=== PATIENT | male | born 1970 | race Caucasian/White ===

== ENCOUNTER 2018-11-12 08:41 | Inpatient (IN) | payer MEDICAID ==
[~2018-11-12] VITALS: Ht 170.2 cm; Wt 79.4 kg
[2018-11-12] MEDS ORDERED: MORPHINE SULFATE 4 MG/ML CPJ (NOT FOR IM USE) IV STA (09:00)
[2018-11-12] MEDS ORDERED: ONDANSETRON HCL 4MG/2ML INJ IV STA (09:00)
[2018-11-12] MEDS ORDERED: SODIUM CHLORIDE 0.9% 1,000 ML IV ONE ×2 (09:00→11:53)
[2018-11-12 09:15] LABS: BASOPHILS % 0.4 % (0.0-2.0); HEMOGLOBIN. 12.7 g/dL (14.0-18.0); LYMPHOCYTES % 7.9 % (20.0-50.0); MEAN CORPUSCULAR HEMOGLOBIN 32.8 pg (28.0-32.0); MEAN CORPUSCULAR VOLUME 95.7 fL (80.0-94.0); MEAN PLATELET VOLUME 7.1 fl (7.4-10.4); MONOCYTES % 3.8 % (2.0-8.0); NEUTROPHILS % 87.9 % (40.0-76.0); PLATELET 229 x1000/uL (130-400); RED BLOOD CELL COUNT 3.87 mill/uL (4.7-6.1); RED CELL DISTRIBUTION WIDTH 12.4 % (11.6-14.6)
[2018-11-12 09:24] LABS: PARTIAL THROMBOPLASTIN TIME 27.8 sec (23.4-31.0); PROTHROMBIN TIME 10.2 sec (9.6-11.0)
[2018-11-12 09:26] LABS: CHLORIDE 102 mEq/L (98-107)
[2018-11-12 10:51] LABS: CLARITY URINE CLOUDY (CLEAR); COLOR URINE DARK YELLOW (YELLOW); KETONES URINE TRACE (NEGATIVE); LEUKOCYTE ESTERASE URINE TRACE (NEGATIVE); NITRITE URINE NEGATIVE (NEGATIVE); OCCULT BLOOD URINE NEGATIVE (NEGATIVE); PROTEIN URINE TRACE (NEGATIVE); SPECIFIC GRAVITY URINE 1.019 (1.005-1.030)
[2018-11-12] MEDS ORDERED: SODIUM CHLORIDE 0.9% 1000ML BAG (SEPSIS BOLUS) IV ONE (13:30)
[2018-11-12] MEDS ORDERED: GUAIFENESIN 200MG/10ML SUGAR FREE UDC PO PRN (20:00)
[2018-11-12] MEDS ORDERED: IPRATROPIUM/ALBUTEROL 0.5-3(2.5)MG/3ML NEB HHN PRN (20:00)
[2018-11-12] MEDS ORDERED: NA PHOS,M-B/NA PHOS,DI-BA ENEMA 118ML PR PRN (20:00)
[2018-11-12] MEDS ORDERED: DOCUSATE SODIUM 100MG CAPSULE PO PRN (20:00)
[2018-11-12] MEDS ORDERED: ONDANSETRON HCL 4MG/2ML INJ IV PRN (20:00)
[2018-11-12] MEDS ORDERED: MAGNESIUM/ALUMINUM HYDROXIDE/SIMETHICONE 30ML UDC PO PRN (20:00)
[2018-11-12] MEDS ORDERED: ACETAMINOPHEN 650MG/20.3ML UDC GT PRN (20:00)
[2018-11-12] MEDS ORDERED: DIPHENHYDRAMINE 50MG/ML VIAL IV PRN (20:00)
[2018-11-12] MEDS ORDERED: CLONIDINE 0.1MG TABLET PO PRN (20:00)
[2018-11-12] MEDS ORDERED: ACETAMINOPHEN 650MG SUPP PR PRN (20:00)
[2018-11-12 22:00] VITALS: BP 102/55
[2018-11-12] MEDS: ACETAMINOPHEN 325MG TABLET PO PRN (22:16)
[2018-11-12] MEDS ORDERED: CEFTRIAXONE 1 G PREMIX 50 ML IV SCH (23:30)
[2018-11-12] MEDS: SODIUM CHLORIDE 0.9% 1,000 ML IV SCH (23:42)
[2018-11-12] MEDS: ENOXAPARIN 40MG/0.4ML SYR SUBCUT SCH (23:43)
[2018-11-13] VITALS (15 sets, daily range): BP systolic 91–124; BP diastolic 47–80
[2018-11-13] MEDS: CEFTRIAXONE 1 G PREMIX 50 ML IV SCH (01:29)
[2018-11-13] MEDS: METRONIDAZOLE 500 MG PREMIX 100 ML IV SCH ×3 (02:07→17:25)
[2018-11-13] MEDS: SODIUM CHLORIDE 0.9% INJ 3ML FLUSH IVF SCH ×3 (06:57→20:41)
[2018-11-13] MEDS: ACETAMINOPHEN 325MG TABLET PO PRN ×2 (06:58→12:51)
[2018-11-13 09:18] LABS: *AMPHETAMINES SCREEN URINE PRESUMTIVE POSITIVE (NEGATIVE); *BARBITURATES SCREEN URINE NEGATIVE (NEGATIVE); *BENZODIAZEPINES SCREEN URINE NEGATIVE (NEGATIVE); *COCAINE SCREEN URINE NEGATIVE (NEGATIVE); METHADONE URINE SCREEN NEGATIVE (NEGATIVE); OPIATES URINE SCREEN PRESUMTIVE POSITIVE (NEGATIVE)
[2018-11-13 09:19] LABS: CANNABINOID URINE SCREEN NEGATIVE (NEGATIVE); PHENCYCLIDINE URINE SCREEN NEGATIVE (NEGATIVE)
[2018-11-13] MEDS: SODIUM CHLORIDE 0.9% 1,000 ML IV SCH ×2 (09:45→20:41)
[2018-11-13 10:13] LABS: BASOPHILS % 0.5 % (0.0-2.0); EOSINOPHILS % 0.3 % (0.0-5.0); HEMATOCRIT. 32.9 % (42.0-52.0); HEMOGLOBIN. 11.3 g/dL (14.0-18.0); LYMPHOCYTES % 12.1 % (20.0-50.0); MEAN CORPUSCULAR HEMOGLOBIN 33.2 pg (28.0-32.0); MEAN CORPUSCULAR VOLUME 96.5 fL (80.0-94.0); MEAN PLATELET VOLUME 7.2 fl (7.4-10.4); MONOCYTES % 6.6 % (2.0-8.0); NEUTROPHILS % 80.5 % (40.0-76.0); PLATELET 184 x1000/uL (130-400); RED BLOOD CELL COUNT 3.41 mill/uL (4.7-6.1); RED CELL DISTRIBUTION WIDTH 12.3 % (11.6-14.6)
[2018-11-13 10:19] LABS: CHLORIDE 111 mEq/L (98-107)
[2018-11-13 10:26] LABS: LDL CHOLESTEROL 55 mg/dL (5-100)
[2018-11-13 10:27] LABS: HDL CHOLESTEROL 28 mg/dL (40-59)
[2018-11-13] MEDS ORDERED: POTASSIUM CHLORIDE 20MEQ TABLET SR PO ONE ×2 (13:00→17:00)
[2018-11-13] MEDS ORDERED: POTASSIUM CHLORIDE 20MEQ TABLET SR PO NR ×4 (13:15→21:00)
[2018-11-13 16:37] LABS: FOLIC ACID (FOLATE) SERUM 5.6 ng/mL (>5.38)
[2018-11-13] MEDS: POTASSIUM CHLORIDE 20MEQ TABLET SR PO SCH (17:24)
[2018-11-13 20:15] LABS: HEPATITIS B SURFACE ANTIGEN NEGATIVE
[2018-11-13] MEDS: ENOXAPARIN 40MG/0.4ML SYR SUBCUT SCH (20:41)
[2018-11-13 20:45] LABS: HEPATITIS A AB IGM NEGATIVE (NEGATIVE)
[2018-11-14] VITALS (14 sets, daily range): BP systolic 90–119; BP diastolic 45–71
[2018-11-14] MEDS: CEFTRIAXONE 1 G PREMIX 50 ML IV SCH (00:08)
[2018-11-14] MEDS: ACETAMINOPHEN 325MG TABLET PO PRN ×2 (00:54→10:11)
[2018-11-14] MEDS: METRONIDAZOLE 500 MG PREMIX 100 ML IV SCH ×3 (00:55→17:06)
[2018-11-14] MEDS: SODIUM CHLORIDE 0.9% INJ 3ML FLUSH IVF SCH ×3 (05:01→22:26)
[2018-11-14] MEDS: SODIUM CHLORIDE 0.9% 1,000 ML IV SCH ×2 (05:01→12:50)
[2018-11-14] MEDS: POTASSIUM CHLORIDE 20MEQ TABLET SR PO SCH (09:19)
[2018-11-14 09:51] LABS: BASOPHILS % 0.6 % (0.0-2.0); EOSINOPHILS % 1.3 % (0.0-5.0); HEMATOCRIT. 31.7 % (42.0-52.0); HEMOGLOBIN. 10.9 g/dL (14.0-18.0); LYMPHOCYTES % 16.2 % (20.0-50.0); MEAN CORPUSCULAR HEMOGLOBIN 33.3 pg (28.0-32.0); MEAN CORPUSCULAR VOLUME 96.6 fL (80.0-94.0); MEAN PLATELET VOLUME 7.6 fl (7.4-10.4); MONOCYTES % 7.3 % (2.0-8.0); NEUTROPHILS % 74.6 % (40.0-76.0); PLATELET 171 x1000/uL (130-400); RED BLOOD CELL COUNT 3.28 mill/uL (4.7-6.1); RED CELL DISTRIBUTION WIDTH 12.5 % (11.6-14.6)
[2018-11-14 10:17] LABS: CHLORIDE 113 mEq/L (98-107)
[2018-11-14] MEDS ORDERED: POTASSIUM CHLORIDE 20MEQ TABLET SR PO NR (11:00)
[2018-11-14] MEDS: TRAMADOL 50MG TABLET PO PRN ×2 (12:47→20:33)
[2018-11-14] MEDS ORDERED: DIPHENOXYLATE/ATROPINE 2.5/0.025MG TABLET PO NR (14:30)
[2018-11-14] MEDS ORDERED: DIPHENOXYLATE/ATROPINE 2.5/0.025MG TABLET PO PRN (18:30)
[2018-11-14] MEDS: ENOXAPARIN 40MG/0.4ML SYR SUBCUT SCH (20:34)
[2018-11-15] VITALS (9 sets, daily range): BP systolic 92–128; BP diastolic 58–80
[2018-11-15] MEDS: SODIUM CHLORIDE 0.9% 1,000 ML IV SCH ×2 (00:11→11:30)
[2018-11-15] MEDS ORDERED: CEFTRIAXONE 1,000 MG in DEXTROSE 5% WATER 50 ML IV SCH (01:00)
[2018-11-15] MEDS: METRONIDAZOLE 500 MG PREMIX 100 ML IV SCH ×2 (01:04→08:27)
[2018-11-15] MEDS: SODIUM CHLORIDE 0.9% INJ 3ML FLUSH IVF SCH (05:03)
[2018-11-15] MEDS: POTASSIUM CHLORIDE 20MEQ TABLET SR PO SCH (08:27)
[2018-11-15] MEDS: TRAMADOL 50MG TABLET PO PRN (08:38)
[2018-11-15] MEDS ORDERED: METR500T MT (09:22)
== END 2018-11-15 14:25 | disposition home or self-care (01) | DRG 241 ==
LOC: ER 08:41 → 5EST 13:32 → EDBD 13:32 → ENRESERV 20:00
PROVIDERS: ADMIT Family Medicine; ATTEND Family Medicine
DX: K29.70 Gastritis, unspecified, without bleeding (principal); E87.1 Hypo-osmolality and hyponatremia; I95.9 Hypotension, unspecified; D53.9 Nutritional anemia, unspecified; E87.6 Hypokalemia; K52.9 Noninfective gastroenteritis and colitis, unspecified; F17.210 Nicotine dependence, cigarettes, uncomplicated; A05.9 Bacterial foodborne intoxication, unspecified; Z21 Asymptomatic human immunodeficiency virus [HIV] infection status
CPT/HCPCS: 36415; 71045; 74176; 80048; 80061; 80305; 81003; 82270; 82607; 82746; 83605; 84484; 86705; 86709; 86803; 87015; 87045; 87340; 87427; 87449; 87493; 89055; 93005; 93306; 96374; 99291; J0696; J1650; J2270; J2405; J3490; J7030; J7060